=== PATIENT | male | born 1985 | race Caucasian/White ===

== ENCOUNTER 2017-03-14 07:49 | Inpatient (IN) | payer BC ==
[~2017-03-14] VITALS: Ht 172.7 cm; Wt 95.7 kg
[2017-03-14 09:36] LABS: CARBON DIOXIDE 22.3 mmol/L (21-32); CREATININE SERUM 1.6 mg/dL (0.7-1.3); POTASSIUM SERUM 3.7 mmol/L (3.5-5.1)
[2017-03-14 09:39] LABS: BASOPHIL % 0.3 % (0-2); PLATELET COUNT 262 x10^3mcL (130-400); RED CELL DISTRIBUTION WIDTH 12.8 % (11.5-14.5)
[2017-03-14 09:43] LABS: ALBUMIN 4.1 g/dL (3.4-5.0); BILIRUBIN TOTAL 1.1 mg/dL (0.20-1.00); TOTAL PROTEIN, SERUM 7.4 g/dL (6.4-8.2)
[2017-03-14] MEDS ORDERED: REQUIP0.5 MG PO (10:21)
[2017-03-14] MEDS ORDERED: TOPAMAX100 MG (10:21)
[2017-03-14] MEDS ORDERED: DEPAKOTE500 MG PO (10:22)
[2017-03-14 11:12] VITALS: Ht 172.7 cm; Wt 95.7 kg
[2017-03-14 11:28] VITALS: BP 134/77
[2017-03-14 11:29] LABS: UA SPECIFIC GRAVITY 1.025 (1.005-1.035); microscopic required? YES; urine erythrocyte 2+ (NEGATIVE)
[2017-03-14 11:38] LABS: AMPHETAMINE QUAL UR NONE DETECTED (NEG <=1000)
[2017-03-14 12:06] VITALS: BP 134/77
[2017-03-14 12:58] VITALS: BP 123/75
[2017-03-14 15:40] LABS: MAGNESIUM 1.7 mg/dL (1.8-2.4); PHOSPHOROUS 3.4 mg/dL (2.5-4.9)
[2017-03-14 15:44] LABS: CHOLESTEROL/HDL RATIO 3.4
[2017-03-14 15:52] LABS: FREE T4 0.93 ng/dL (0.76-1.46); FREE THYROXINE INDEX 2.5 ug/dL (1.4-4.5); T4(THYROXINE) 6.2 ug/dL (4.7-13.3)
[2017-03-14 15:58] LABS: AMYLASE 87 U/L (25-115); LIPASE 203 IU/L (73-393)
[2017-03-14 16:54] VITALS: BP 114/62
[2017-03-14 20:48] VITALS: BP 115/64
[2017-03-15 04:57] VITALS: BP 114/61
[2017-03-15 06:17] LABS: BASOPHIL % 0.2 % (0-2); PLATELET COUNT 203 x10^3mcL (130-400); RED CELL DISTRIBUTION WIDTH 12.7 % (11.5-14.5)
[2017-03-15 06:44] LABS: CALCIUM 8.5 mg/dL (8.5-10.1); CARBON DIOXIDE 22.8 mmol/L (21-32); CREATININE SERUM 1.7 mg/dL (0.7-1.3); MAGNESIUM 1.8 mg/dL (1.8-2.4)
[2017-03-15 09:10] VITALS: BP 123/72
[2017-03-15 13:01] VITALS: BP 139/75
[2017-03-15 17:07] VITALS: BP 155/83
[2017-03-15 21:16] VITALS: BP 134/71
[2017-03-16 05:25] VITALS: BP 137/77
[2017-03-16 06:39] LABS: BASOPHIL % 0.1 % (0-2); PLATELET COUNT 193 x10^3mcL (130-400); RED CELL DISTRIBUTION WIDTH 12.3 % (11.5-14.5)
[2017-03-16 07:05] LABS: CALCIUM 8.4 mg/dL (8.5-10.1); CARBON DIOXIDE 22.7 mmol/L (21-32); CREATININE SERUM 1.6 mg/dL (0.7-1.3); PHOSPHOROUS 3.9 mg/dL (2.5-4.9); POTASSIUM SERUM 3.7 mmol/L (3.5-5.1)
[2017-03-16 09:39] VITALS: BP 131/71
[2017-03-16] MEDS ORDERED: LEVAQUIN750 MG PO (10:44)
[2017-03-16] MEDS ORDERED: FLO4 PO (10:45)
[2017-03-16] MEDS ORDERED: NOR10T PO (10:45)
[2017-03-16] MEDS ORDERED: LAC PO (10:46)
[2017-03-16] MEDS ORDERED: NICODERM C21 MG/241 TOP (11:00)
[2017-03-16 11:19] VITALS: BP 131/71
== END 2017-03-16 11:53 | disposition home or self-care (01) | DRG 871 ==
LOC: ED 07:49 → MU 10:22 → DU 10:22 → MU 03-16 07:52
PROVIDERS: Emergency Medicine; Family Medicine Sports Medicine
DX: A41.9 Sepsis, unspecified organism (principal); N17.0 Acute kidney failure with tubular necrosis; N39.0 Urinary tract infection, site not specified; N13.2 Hydronephrosis with renal and ureteral calculous obstruction; G40.A09 Absence epileptic syndrome, not intractable, without status epilepticus; E66.9 Obesity, unspecified; G43.909 Migraine, unspecified, not intractable, without status migrainosus; R31.9 Hematuria, unspecified; E83.42 Hypomagnesemia; F17.210 Nicotine dependence, cigarettes, uncomplicated; Z68.32 Body mass index [BMI] 32.0-32.9, adult; Z82.49 Family history of ischemic heart disease and other diseases of the circulatory system; Z80.3 Family history of malignant neoplasm of breast
CPT/HCPCS: 83880; 84439; J1885; J1956; J2270; J2405; J3010; J3475; J3490; J7030; Q0092